=== PATIENT | male | born 1960 | race Hispanic/Latino ===

== ENCOUNTER 2018-09-13 06:53 | Day surgery (SDC) | payer OTHER ==
--- NOTE | 2018-09-13 07:53 | Anesthesia Consultation ---
Anesthesia Consult and Med Hx Date of service: 09/13/18 - Airway Anesthetic Teeth Evaluation: Good ROM Head & Neck: Adequate Mental/Hyoid Distance: Adequate Mallampati Class: Class II Intubation Access Assessment: Probably Good - Pulmonary Exam CTA: Yes - Cardiac Exam Cardiac Exam: RRR - Pre-Operative Health Status ASA Pre-Surgery Classification: ASA3 Proposed Anesthetic Plan: MAC - Pulmonary Hx Smoking: No Hx Asthma: No - Cardiovascular System Hx Hypertension: Yes Hx Heart Attack/AMI: Yes (in the 1980s, "no damage") Hx Angina: No Hx Cardia Arrhythmia: No - Central Nervous System Hx Neuromuscular Disorder: No - Gastrointestinal Hx Gastroesophageal Reflux Disease: No - Endocrine Hx Renal Disease: Yes (CKD) Hx End Stage Renal Disease: Yes Hx Liver Disease: No Hx Thyroid Disease: No - Hematic Hx Anemia: No - Other Systems Hx Alcohol Use: No Hx Substance Use: No - Additional Comments Anesthesia Medical History Comments: No GAC, No FHAC
[2018-09-13] MEDS ORDERED: WATER FOR IRRIG STERILE IR ONE (07:55)
[2018-09-13] MEDS ORDERED: WATER FOR IRRIG STERILE ONE (07:55)
[2018-09-13] MEDS ORDERED: NACL 0.9% 1000 ML 1,000 ML IV SCH (08:00)
[2018-09-13] MEDS ORDERED: XYLOCAINE 2% INFILTRATI ONE (08:29)
[2018-09-13] MEDS ORDERED: DIPRIVAN 10 MG/ML IV ONE ×5 (08:29→09:37)
--- NOTE | 2018-09-13 10:02 | Procedure Note ---
Date of procedure: 09/13/18 Pre-op diagnosis: Dysphagia/ H/O Colon Polyps Post-op diagnosis: other (Esophageal Stenosis (s/p Esophageal Balloon Dilation)/ Moderately,Severe Erosive Esophagitis/Gastritis/ Multiple, Colon Polyps (Rectal,Sigmoid,Descending Colon and Transverse)/ Moderate, Left Colon Diverticular Disease) Procedure: EGD with Biopsy and Esophageal Balloon Dilation (18 mm) and Colonoscopy and Cold Biopsy and Snare Excision Anesthesia: MAC Surgeon: RAMIRO CMGUIRE Estimated blood loss: minimal Pathology: list Specimen disposition: to lab Condition: stable Disposition: same day (Treat with PPI. Soft diet for today and then advance as tolerated. Avoid aspirin and NSAID for 5 days. Encourage fiber supplements and follow up in 1 to 2 weeks ([phone]).)
[2018-09-13 10:23] VITALS: BP 121/74
--- NOTE | 2018-09-13 12:03 | Operative Report ---
PROCEDURE: EGD with biopsy and esophageal balloon dilation. INDICATIONS: This is a 57-year-old slightly obese white male with an underlying history of diabetes mellitus type 2 and hypertension who has a prior history of esophageal stenosis and food impaction that had required displacement a few years back. Lately, he has been having progressive worsening of his symptoms of dysphagia. EGD was done to make sure that the esophageal stenosis had not recurred. DESCRIPTION OF PROCEDURE: Procedure was done after getting informed consent with MAC anesthesia. Instrument was passed through the hypopharynx into the esophagus, which showed moderately severe distal erosive esophagitis and esophageal stenosis. The EGD scope was passed with some degree of difficulty into the stomach, which showed antral gastritis. Biopsy was done from the gastric antrum, gastric body, and angular incisure to rule out for H. pylori and atrophic gastritis. The pylorus was patent. The duodenum in the first and second portion appeared normal. Additional biopsy was done from the distal esophagus to assess for the severity of the esophagus and the esophagus was dilated with an 18 mm balloon that was maintained for a minute. There was minimal bleeding from the biopsy sites. No complications associated with the procedure. ASSESSMENT: Dysphagia secondary to esophageal stenosis, status post balloon dilation, moderately severe erosive esophagitis, gastritis. No peptic ulcer disease noted. Patent pylorus. There was minimal bleeding from the biopsy sites. No complications associated with the procedure. PLAN: To have the patient avoid aspirin and aspirin-related products for the next few days, stay on a soft diet for today, treat the patient with PPI, and have the patient follow up in the office in 1-2 weeks' time. RNEssie was in the room for the entirety of the procedure. The patient is to have a colonoscopy done to assess for colon polyps. He has a prior history of colon polyps. JOB# [id number] ELOINA/JOIE
--- NOTE | 2018-09-13 12:32 | Operative Report ---
PROCEDURE: Colonoscopy with snare polypectomy and cold biopsy. INDICATIONS: This is a 57-year-old white male with an underlying history of diabetes mellitus, hypertension, prior history of colon polyps, who had a repeat colonoscopy done to make sure there was not recurrence of any polyps. DESCRIPTION OF PROCEDURE: Procedure was done after getting informed consent with MAC anesthesia. Initial rectal examination was unremarkable. Instrument was passed through the rectum onto the cecum, which was identified by the ileocecal valve and the appendiceal orifice. Visualization was fair. The cecum, ascending colon showed normal mucosa. There was a small polyp, probably an 8-9 mm in diameter that was noted in the distal transverse colon that was burnt with the tip of the polypectomy snare. In the descending colon, there was a 10 mm polyp on a stalk that was removed by snare excision and retrieved by snare polypectomy with application of heat. There was a smaller polyp in the sigmoid that was removed by cold biopsy and another 10 mm polyp in the rectum that was removed by snare polypectomy and retrieved. There were no internal hemorrhoids noted on the retroverted view. Minimal bleeding from the biopsy sites. No complications associated with the procedure. ASSESSMENT: History of colon polyps, multiple colon polyps noted involving the rectum, sigmoid, descending colon and distal transverse colon, moderate left colon diverticular disease. Again, there was minimal bleeding from the polypectomy sites and no complications associated with the procedure. The patient will be encouraged to take fiber supplements and follow up in the office in 1-2 weeks' time. Adelita PENA was in the room throughout the entirety of the procedure. JOB# [id number] ELOINA/JOIE
== END 2018-09-13 06:54 | disposition home or self-care (01) ==
LOC: GIO 06:53
DX: Z12.11 Encounter for screening for malignant neoplasm of colon (principal); D12.7 Benign neoplasm of rectosigmoid junction; D12.4 Benign neoplasm of descending colon; K57.30 Diverticulosis of large intestine without perforation or abscess without bleeding; K22.2 Esophageal obstruction; K29.70 Gastritis, unspecified, without bleeding; K22.10 Ulcer of esophagus without bleeding; I11.0 Hypertensive heart disease with heart failure; I50.9 Heart failure, unspecified; I25.2 Old myocardial infarction; B15.9 Hepatitis A without hepatic coma; E11.9 Type 2 diabetes mellitus without complications; Z79.84 Long term (current) use of oral hypoglycemic drugs; Z79.899 Other long term (current) drug therapy; Z86.010 Personal history of colon polyps; Z98.890 Other specified postprocedural states; Z80.6 Family history of leukemia; Z80.8 Family history of malignant neoplasm of other organs or systems; Z80.42 Family history of malignant neoplasm of prostate
CPT/HCPCS: 43239; 43249; 45380; 45385; 82962; 88305; 88342; J2704

== ENCOUNTER 2019-02-09 07:18 | Day surgery (SDC) | payer OTHER ==
[~2019-02-09 07:18] MED LIST: NACL 0.9% 1000 ML 1,000 ML IV SCH
--- NOTE | 2019-02-09 08:57 | Anesthesia Day of Surgery ---
Anesthesia Day of Surgery - Day of Surgery Patient Examined: Yes Patient H&P Reviewed: Yes Patient is NPO: Yes
[2019-02-09] MEDS ORDERED: DIPRIVAN 10 MG/ML IV ONE (08:58)
--- NOTE | 2019-02-09 08:58 | Anesthesia Consultation ---
Anesthesia Consult and Med Hx Date of service: 02/09/19 - Airway Anesthetic Teeth Evaluation: Crowns ROM Head & Neck: Adequate Mental/Hyoid Distance: Adequate Mallampati Class: Class II Intubation Access Assessment: Probably Good - Pre-Operative Health Status ASA Pre-Surgery Classification: ASA3 Proposed Anesthetic Plan: MAC - Pulmonary Hx Smoking: No Hx Asthma: No - Cardiovascular System Hx Hypertension: Yes Hx Heart Attack/AMI: Yes (in the 1980s, "no damage") Hx Angina: No Hx Cardia Arrhythmia: No - Central Nervous System Hx Neuromuscular Disorder: No - Gastrointestinal Hx Gastroesophageal Reflux Disease: No - Endocrine Hx Renal Disease: Yes (CKD) Hx End Stage Renal Disease: Yes Hx Liver Disease: No Hx Non-Insulin Dependent Diabetes: Yes Hx Thyroid Disease: No - Hematic Hx Anemia: No - Other Systems Hx Alcohol Use: No Hx Substance Use: No Hx Obesity: Yes
--- NOTE | 2019-02-09 09:33 | Procedure Note ---
Date of procedure: 02/09/19 Pre-op diagnosis: Dysphagia Post-op diagnosis: other (Esophageal Stenosis (s/p Balloon Dilation)/ Moderately,Severe Esophagitis/ Gastroparesis/ Gastric Bezoar/ Gastritis) Procedure: EGD with Biopsy and s/p Balloon Dilation (18 mm and 20 mm). Anesthesia: MAC Surgeon: RAMIRO MCGUIRE Estimated blood loss: minimal Pathology: list Specimen disposition: to lab Condition: stable Disposition: same day (Treat with PPI and Reglan. Soft diet for today and avoid aspirin and NSAID. Follow up in 1 to 2 weeks ([phone]).)
--- NOTE | 2019-02-09 09:59 | Operative Report ---
PROCEDURE: EGD with biopsy and esophageal dilation. INDICATIONS: This is a 58-year-old white male with an underlying history of diabetes mellitus type 2, hypertension, who had previously presented to the hospital Emergency Room with food impaction for which he had to have dilation done some years back. Lately, he has been having some problems with dysphagia again and EGD was done to assess for his esophageal stenosis and to do dilation if needed. DESCRIPTION OF PROCEDURE: The procedure was done after getting informed consent with MAC anesthesia. Instrument was passed to the hypopharynx into the esophagus, which did show moderately severe erosive esophagitis and esophageal stenosis. The esophagus was dilated with an 18 and subsequently with a 20 mm balloon at the end of the procedure and biopsy was also done from the distal esophagus. The stomach showed presence of gastric bezoar secondary to gastroparesis. The pylorus was patent. There was some antral gastritis present. Biopsy was done from the gastric antrum and the gastric body to rule out for H. pylori and atrophic gastritis. The pylorus is patent. The duodenum in the first and the second portion appeared normal. ASSESSMENT: Dysphagia, esophageal stenosis, status post balloon dilation with 18 and 20 mm balloon. Moderately severe erosive esophagitis, gastroparesis with gastric bezoar, patent pylorus gastritis. There was minimal bleeding from the biopsy sites and from the dilation site, but no complications associated with the procedure. PLAN: Plan is to treat the patient with PPI as well as Reglan, have the patient to avoid aspirin and aspirin-related products for the next few days and follow up in the office in 1-2 weeks' time. Lisset PNEA was in the room for the entirety of the procedures. JOB# [id number] ELOINA/JOIE
[2019-02-09 10:15] VITALS: BP 127/83
== END 2019-02-09 07:19 | disposition home or self-care (01) ==
LOC: GIO 07:18
DX: K22.2 Esophageal obstruction (principal); K21.0 Gastro-esophageal reflux disease with esophagitis; K31.84 Gastroparesis; I13.2 Hypertensive heart and chronic kidney disease with heart failure and with stage 5 chronic kidney disease, or end stage renal disease; E11.22 Type 2 diabetes mellitus with diabetic chronic kidney disease; N18.6 End stage renal disease; I50.9 Heart failure, unspecified; E66.9 Obesity, unspecified; Z79.899 Other long term (current) drug therapy; Z68.31 Body mass index [BMI] 31.0-31.9, adult; Z87.442 Personal history of urinary calculi
CPT/HCPCS: 43239; 43249; 82962; 88305; 88342; C1726; J2704; J7030

== ENCOUNTER 2019-04-13 07:16 | Day surgery (SDC) | payer OTHER ==
[2019-04-13] MEDS ORDERED: ROBINUL ONE (08:00)
--- NOTE | 2019-04-13 08:07 | Anesthesia Consultation ---
Anesthesia Consult and Med Hx Date of service: 04/13/19 - Airway Anesthetic Teeth Evaluation: Good ROM Head & Neck: Adequate Mental/Hyoid Distance: Adequate Mallampati Class: Class III Intubation Access Assessment: Possibly Difficult - Pre-Operative Health Status ASA Pre-Surgery Classification: ASA3 Proposed Anesthetic Plan: MAC - Pulmonary Hx Smoking: No Hx Asthma: No - Cardiovascular System Hx Hypertension: Yes Hx Heart Attack/AMI: Yes (in the 1980s, "no damage") Hx Angina: No Hx Cardia Arrhythmia: No - Central Nervous System Hx Neuromuscular Disorder: No - Gastrointestinal Hx Gastroesophageal Reflux Disease: No (dysphagea) - Endocrine Hx Renal Disease: Yes (CKD) Hx End Stage Renal Disease: Yes Hx Liver Disease: No Hx Non-Insulin Dependent Diabetes: Yes Hx Thyroid Disease: No - Hematic Hx Anemia: No - Other Systems Hx Alcohol Use: No Hx Substance Use: No Hx Obesity: Yes
--- NOTE | 2019-04-13 08:08 | Anesthesia Day of Surgery ---
Anesthesia Day of Surgery - Day of Surgery Patient Examined: Yes Patient H&P Reviewed: Yes Patient is NPO: Yes
[2019-04-13] MEDS ORDERED: SUBLIMAZE ONE (08:52)
[2019-04-13] MEDS ORDERED: DIPRIVAN 10 MG/ML IV ONE (08:52)
[2019-04-13] MEDS ORDERED: WATER FOR IRRIG STERILE IR ONE (08:55)
--- NOTE | 2019-04-13 09:19 | Procedure Note ---
Date of procedure: 04/13/19 Pre-op diagnosis: Dysphagia Post-op diagnosis: other (Dysphagia secondary to Moderate,Esophageal Stenosis (s/p Balloon dilation-20 mm)/ Moderate,Erosive Esophagitis/Gastrtis/Duodenitis) Procedure: EGD with biopsy and s/p Balloon dilation (20 mmBalloon) [place] [facility] [place]: RAMIRO MCGUIRE Estimated blood loss: minimal Pathology: list Specimen disposition: to lab Condition: stable Disposition: same day (Treat with PPI and avoid aspirin and NSAID for 5 days and follow up in 1 to 2 weeks ([phone]).)
--- NOTE | 2019-04-13 09:46 | Operative Report ---
PROCEDURE: Esophagogastroduodenoscopy with biopsy and balloon dilation. INDICATIONS: This is a 58-year-old white male with an underlying history of diabetes, hypertension, history of esophageal stenosis for which he has had food impactions in the past requiring him to come to the hospital Emergency Room. EGD was done since the patient has lately been developing some worsening of his symptoms of dysphagia for balloon dilation. DESCRIPTION OF PROCEDURE: The procedure was done after getting informed consent with MAC anesthesia. Instrument was passed through the hypopharynx into the esophagus, which showed mild to moderate esophageal stenosis. This was dilated at the end of the procedure with a 20 mm balloon that was maintained for a minute. There was moderate erosive esophagitis present. The stomach showed gastritis. Biopsy was done from the gastric antrum, gastric body and angular incisura, now to rule out for H. pylori. There was minimal bleeding from the biopsy sites and also to assess for atrophic gastritis. The pylorus was patent. The duodenum in the bulb showed some mild duodenitis. Second portion appeared normal. There was minimal bleeding from the biopsy sites and from the esophageal dilation. No complications associated with the procedure. ASSESSMENT: Dysphagia secondary to [id number] benign esophageal stenosis, status post dilation, moderate erosive esophagitis, gastritis and duodenitis. Plan is to treat the patient with PPI, have the patient stay on a soft diet and advance diet as tolerated. Avoid aspirin and aspirin-related products for the next few days and follow up in the office in 1-2 weeks' time. The procedure was done in the GI lab with assistance of the GI lab team, which included [employer] as well as a Sriram weathers. JOB# [id number] ELOINA/JOIE
[2019-04-13 09:55] VITALS: BP 109/67
== END 2019-04-13 07:17 | disposition home or self-care (01) ==
LOC: GIO 07:16
DX: K22.2 Esophageal obstruction (principal); K29.50 Unspecified chronic gastritis without bleeding; K31.89 Other diseases of stomach and duodenum; K21.0 Gastro-esophageal reflux disease with esophagitis; K29.80 Duodenitis without bleeding; I13.2 Hypertensive heart and chronic kidney disease with heart failure and with stage 5 chronic kidney disease, or end stage renal disease; E11.22 Type 2 diabetes mellitus with diabetic chronic kidney disease; N18.6 End stage renal disease; I50.9 Heart failure, unspecified; E66.9 Obesity, unspecified; Z79.899 Other long term (current) drug therapy; Z68.32 Body mass index [BMI] 32.0-32.9, adult
CPT/HCPCS: 43239; 43249; 82962; 88305; 88342; C1726; J2704; J3010; J7030